=== PATIENT | male | born 1950 | race Caucasian/White ===

== ENCOUNTER → 2018-06-15 08:12 | Outpatient (CLI) | payer MEDICARE, OTHER ==
[~2018-06-15] VITALS: Ht 193 cm; Wt 154.5 kg
--- NOTE | ~2018-06-15 | OP ---
PATIENT NAME: SYED LEDESMA MEDICAL RECORD: [id number] :48 LOCATION:D.CAT ADMISSION DATE: SURGEON: ARCHIE BARNES MD DATE OF OPERATION: 06/15/2018 PROCEDURES: 1. PTCA and stent of LAD. 2. Intravascular ultrasound. 3. Left heart catheterization. 4. Selective coronary angiography. 5. Left ventriculogram. INDICATIONS: Angina, coronary artery disease, abnormal ECG. DESCRIPTION OF PROCEDURE: After informed consent was obtained and after a detailed explanation of the risks, benefits as well as alternative therapies, the patient elected to proceed with angiogram and angioplasty. The right radial area was prepped and draped in normal sterile fashion. Right radial artery was cannulated via modified Seldinger technique with placement of 6-Haitian sheath. All catheters exchanged through this sheath. FINDINGS: The left ventriculogram was performed in standard 30-degree REYNOSO view, reveals preserved cardiac wall motion and ejection fraction in the 55% range. SELECTIVE CORONARY ANGIOGRAPHY: 1. Left main is with no significant angiographic disease. 2. Left anterior descending has 80% stenosis in the proximal mid vessel confirmed by intravascular ultrasound. 3. Left circumflex has mild irregularities, but no flow-limiting stenosis. 4. Right coronary is small, nondominant with no significant disease. PTCA AND STENT OF THE LAD: The stent used is a 3.0 x 30-mm Integrity. Result was 0% residual stenosis. OVERALL IMPRESSION: Successful PTCA and stent of the LAD going from 80% initial stenosis to 0% residual stenosis. TRANSINT:[id number] Voice Confirmation ID: [id number] DOCUMENT ID: [id number] ARCHIE BARNES MD at 1925 CC: [id number] DICTATION DATE: 06/15/18 1234 LENS GRINDER APPRENTICE: 06/15/18 1326 [facility] [address] [place] [address]
--- NOTE | ~2018-06-15 | HEMODYNAMI ---
PATIENT:SYED LEDESMA MEDICAL RECORD: [id number] : 48 LOCATION:D.CAT ADMISSION DATE: 06/15/18 Generatedon:06/15/201812:36 Patient name: SYED LEDESMA Patient #: [id number] SSN: : 1950 Date of study: 06/15/2018 Page: Of Hemodynamic Procedure Report Patient Data Patient Demographics Procedure consent was obtained First Name: SYED Gender: Male Last Name: CALLIE : 1950 Middle Initial: EMMANUEL Age: 68 year(s) Patient #: [id number] Race: Unknown Additional ID: [id number] Contact details Address: [address] [place] [address] State: [place] City: [place] Zip code: [address] Past Medical History Allergies: No known allergies Admission Admission Data Admission Date: 06/15/2018 Admission Time: 8:12 Procedure Procedure Types Cath Procedure Diagnostic Procedure LHC LHC w/Coronaries FFR/IVUS Intra-Coronary IVUS Initial PCI Procedure Coronary Stent Coronary Stent Initial Procedure Description Procedure Date Procedure Date: 06/15/2018 Procedure Start Time: 12:16 Procedure End Time: 12:34 Procedure Staff Name Function Frantz Aldridge MD Performing Physician Jason Cardenas RN Marine Fuel Dock Attendant Chantelle Perdomo RT Monitor Naima Moore RN Nurse David Frazier RT Scrub Procedure Data Cath Procedure Fluoroscopy Diagnostic fluoroscopy Total fluoroscopy Time: 4.6 time: 4.6 min min Diagnostic fluoroscopy Total fluoroscopy dose: 979 dose: 979 mGy mGy Contrast Material Contrast Material Type Amount (ml) Isovue 300 125 Entry Location Entry Primary Successful Side Size Upsize Upsize Entry Closure Bird ccessful Closure Location (Fr) 1 (Fr) 2 (Fr) Remarks Device Remarks Radial Right 6 Fr Mechanical artery Short Compression Estimated blood loss: 10 ml Diagnostic catheters Device Type Used For End Catheter Placement DIAGNOSTIC [place] 110cm 5 Procedure Fr catheter ([id number]) DIAGNOSTIC AR2 MOD 5 Fr Procedure catheter ([id number]) Procedure Complications No complications Procedure Medications Medication Administration Route Dosage 0.9% NaCl I.V. 100 ml/hr Oxygen etCO2 Nasal cannula 2 l/min Lidocaine 2% added to field 20 Heparin Flush Bag added to field 2 bags (1000units/500ml NS) Radial Cocktail added to field 1 syringe (Verapomil 2mg/Nitro 400mcg/Heparin 1500units) Versed I.V. 2 mg Fentanyl I.V. 100 mcg Versed I.V. 2 mg Fentanyl I.V. 25 mcg Versed I.V. 2 mg Fentanyl I.V. 75 mcg Heparin Bolus I.V. 4000 units Hemodynamics Rest Heart Rate: 55 (bpm) Snapshots Pre Cath Intra NCS Post Cath Vital Signs Time Heart Resp SPO2 etCO2 NIBP (mmHg) Rhythm Pain Sedation Rate (ipm) (%) (mmHg) Status Level (bpm) 12:00:38 49 18 96 27 185/85(133) A-Flutter 0 (11) 10(A) , No pain 12:05:06 54 18 97 33.3 174/80(134) A-Flutter 0 (11) 10(A) , No pain 12:10:18 55 18 98 15.1 170/77(123) A-Flutter 0 (11) 10(A) , No pain 12:14:32 46 14 97 29.5 138/85(100) A-Flutter 0 (11) 10(A) , No pain 12:18:34 46 12 96 13.6 116/79(102) A-Flutter 0 (11) 10(A) , No pain 12:23:34 50 13 98 46.2 160/75(120) A-Flutter 0 (11) 10(A) , No pain 12:27:50 62 15 96 40.8 165/105(122) A-Flutter 0 (11) 10(A) , No pain 12:33:08 54 11 98 25.7 163/70(112) A-Flutter 0 (11) 10(A) , No pain Medications Time Medication Route Dose Verified Delivered Reason Not es Effectiveness by by 11:51:59 0.9% NaCl I.V. 100 Frantz Jovelyla used for ml/hr Oly Moore environmental services manager 11:52:06 Oxygen etCO2 2 l/min Frantz Naima used for Nasal Oly Moore procedure cannula RN 11:52:13 Lidocaine 2% added 20ml Frantz Naima used for to vial Oly Moore procedure field RN 11:52:18 Heparin Flush added 2 bags Frantz Naima used for Bag to Oly Moore procedure (1000units/500ml field RN NS) 12:08:21 Radial Cocktail added 1 Frantz Frantz used for (Verapomil to syringe Oly Aldridge MD procedure 2mg/Nitro field 400mcg/Heparin 1500units) 12:11:15 Versed I.V. 2 mg Frantz Naima for sedation Oly Moore RN 12:11:23 Fentanyl I.V. 100 mcg Frantz Naima for sedation Oly Moore RN 12:16:39 Versed I.V. 2 mg Frantz Naima for sedation Oly Moore RN 12:16:49 Fentanyl I.V. 25 mcg Frantz Naima for sedation Oly Moore RN 12:20:04 Heparin Bolus I.V. 4000 Frantz Naima for jamia ified units Oly Moore anticoagulation with Dr. MEGAN Montesinos 12:22:48 Versed I.V. 2 mg Frantz Naima for sedation Oly Moore RN 12:25:56 Fentanyl I.V. 75 mcg Frantz Naima for sedation Oly Moore RN Procedure Log Time Note 11:47:24 Time tracking: Regular hours (M-F 7:00 - 5:00) 11:47:28 Plan of Care:Hemodynamics will remain stable., Cardiac rhythm will remain stable., Comfort level will be maintained., Respiratory function will remain adequate., Patient/ family verbilizes understanding of procedure., Procedure tolerated without complication., Recovers from procedure without complications.. 11:47:30 Jason Cardenas RN sent for patient. Start room use. 11:51:15 Patient received from Pre/Post Procedure Room to CCL 1 Alert and oriented. Tansferred to table in Supine position. 11:51:17 Warm blankets applied, and krystle hugger turned on for patient comfort. 11:51:17 Correct patient and procedure confirmed by team. 11:51:18 Signed procedure consent form obtained from patient. 11:51:19 ECG and BP/O2 sat monitors applied to patient. 11:51:21 Diagnostic Cath status Elective 11:51:28 H&P Date Dictated: 06/10/2018 Within 30 days and on chart., H&P Addendum completed by physician on day of procedure. (MUST COMPLETE FOR ALL OUTPATIENTS). 11:51:59 0.9% NaCl 100 ml/hr I.V. was administered by Naima Moore RN; used for procedure; 11:52:06 Oxygen 2 l/min etCO2 Nasal cannula was administered by Naima Moore RN; used for procedure; 11:52:13 Lidocaine 2% 20ml vial added to field was administered by Naima Moore RN; used for procedure; 11:52:18 Heparin Flush Bag (1000units/500ml NS) 2 bags added to field was administered by Naima Moore RN; used for procedure; 11:57:00 Pre-procedure instructions explained to patient. 11:57:03 Family in waiting room. 11:57:07 Patient NPO since Midnight. 11:57:17 Patient allergic to No known allergies 11:57:20 Is the patient allergic to Iodine/contrast media? No. 11:57:23 Was the patient premedicated? Yes 11:57:28 Is patient on blood thinner?Yes 11:57:31 ACC The patient was administered the following blood thiners within the last 24 hours: ACCPlavix 11:58:20 Patient diabetic? Yes. 11:58:21 If diabetic: On Metformin? Yes 11:58:27 If on Metformin: Last Dose? 06/14/2018 11:58:30 Vital chart was started 11:58:31 Baseline sample Acquired. 11:58:35 Rhythm: sinus rhythm 11:58:37 Full Disclosure recording started 11:58:43 Snore? Yes 11:58:45 Sleep apnea? No 11:58:50 Dentures? No ? 11:58:54 Patient pain scale 0/10 ?. 11:59:02 IV patent on arrival in left forearm with 0.9% NaCl at [facility]. 11:59:04 Lab results completed and on chart. 11:59:08 Right Radial & Right Groin area was prepped with chlora-prep and draped in sterile fashion 11:59:10 Alarms reviewed by R. N. 11:59:10 Sharps counted by scrub and verified by R.N. 11:59:11 Physician paged 12:02:32 Physician arrived 12:06:14 --------ALL STOP TIME OUT------ 12:06:15 Final Timeout: patient, procedure, and site verified with staff and physician. All members of the team are in agreement. 12:06:17 Right Radial & Right Groin site verified by team. 12:06:19 Physical assessment completed. ASA score P 2 - A patient with mild systemic disease as per Frantz Aldridge MD. 12:06:25 Sedation plan: IV Moderate Sedation Medication:Versed, Fentanyl 12:06:50 Use device set Radial Dx or PCI 12:06:51 ACIST Syringe (95726) opened to sterile field. 12:06:52 Bag Decanter (2002S) opened to sterile field. 12:06:52 ACIST Hand Control (95295) opened to sterile field. 12:06:53 ACIST Manifold (72446) opened to sterile field. 12:06:53 Tegaderm 4 x 4 (1626W) opened to sterile field. 12:06:56 Medline Cath Pack ([id number]) opened to sterile field. 12:06:57 DIAGNOSTIC WIRE .035 260cm J wire (563021) opened to sterile field. 12:06:57 MBrace Wrist Support (987022028) opened to sterile field. 12:06:58 SHEATH 6FR Slender (34-3285) opened to sterile field. 12:08:21 Radial Cocktail (Verapomil 2mg/Nitro 400mcg/Heparin 1500units) 1 syringe added to field was administered by Frantz Aldridge MD; used for procedure; 12:11:13 Baseline sample Acquired. 12:11:15 Versed 2 mg I.V. was administered by Naima Moore RN; for sedation; 12:11:23 Fentanyl 100 mcg I.V. was administered by Naima Moore RN; for sedation; 12:16:16 Procedure started. 12:16:24 Local anesthetic to right radial artery with Lidocaine 2% by Frantz Aldridge MD.INITIAL ACCESS ONLY 12:16:33 Zero performed for pressure channel P1 12:16:39 Versed 2 mg I.V. was administered by Naima Moore RN; for sedation; 12:16:49 Fentanyl 25 mcg I.V. was administered by Naima Oscar RN; for sedation; 12:16:53 A 6 Fr Short sheath was inserted into the Right Radial artery 12:17:27 A DIAGNOSTIC [place] 110cm 5 Fr catheter (509921) was advanced over the wire and used for Procedure. 12:17:31 Zero performed for pressure channel P1 12:17:38 Zero performed for pressure channel P1 12:17:45 Zero performed for pressure channel P1 12:17:53 Zero performed for pressure channel P1 12:18:11 Zero performed for pressure channel P1 12:18:21 Zero performed for pressure channel P1 12:18:57 LV gram done using REYNOSO 12:18:59 Injector settings: Ml/sec: 7, Volume: 15, 12:19:36 EF : 55 % 12:20:04 Heparin Bolus 4000 units I.V. was administered by Naima Moore RN; for anticoagulation; verified with Dr. Aldridge 12:20:56 UNABLE TO ENGAGE LCA/RCA 12:20:58 Catheter exchanged over wire. 12:22:08 A DIAGNOSTIC AR2 MOD 5 Fr catheter ([id number]) was advanced over the wire and used for Procedure. 12:22:17 RCA angiography performed. 12:22:18 Catheter exchanged over wire. 12:22:23 GUIDE 6FR EBU 3.0 catheter ([id number]) opened to sterile field. 12:22:33 6 Fr EBU 3 guide catheter was inserted over the wire 12:22:48 Versed 2 mg I.V. was administered by Naima Moore RN; for sedation; 12:23:52 LCA angiography performed. 12:24:09 INFLATOR Merit BasixCompak (KC7563) opened to sterile field. 12:24:10 CHOICE PT Extra Support 182cm wire (6806601N0) opened to sterile field. 12:24:11 Creighton Hammond Eagleye IVUS Catheter (51688M) opened to sterile field. 12:24:48 CHOICE ES 182 wire advanced. 12:25:24 Wire advanced across lesion. 12:25:42 IVUS catheter advanced over wire. 12:25:56 Fentanyl 75 mcg I.V. was administered by Naima Moore RN; for sedation; 12:27:35 IVUS pass to LAD lesion performed. 12:27:36 IVUS catheter removed over wire. 12:29:30 Place stent Inflation Number: 1 A INTEGRITY RX 3.0 x 30 stent ([id number]) was prepped and advanced across the Mid LAD. The stent was deployed at 13 [address] for 0:10 (min:sec). 12::55 Stent catheter was removed intact over wire. 12::55 Wire removed. 12::56 Guide catheter removed. 12:30:03 Procedure ended.(Physican Out) 12:31:04 TR BAND Large ([id number]) opened to sterile field. 12:32:08 Sheath removed intact; hemostasis achieved with Mechanical Compression to the Right Radial artery. 12:32:12 Fluoroscopy time 04.60 minutes. 12:32:16 Fluoroscopy dose: 979 mGy 12:32:16 Flurop Dose total: 979 12::24 Contrast amount:Isovue 300 125ml. 12:32:27 TR band inflated with 10cc of air. 12:32:49 Post-procedure physical assessment completed. ASA score P 2 - A patient with mild systemic disease as per Frantz Aldridge MD. 12:32:53 Post procedure rhythm: atrial flutter 12::55 Estimated blood loss: 10 ml 12::56 Post procedure instruction explained to patient.Patient verbalizes understanding. 12:32:57 Patient needs reinforcement of post procedure teaching. 12:33:24 Procedure type changed to Cath procedure, Diagnostic procedure, LHC, LHC w/Coronaries, FFR/IVUS, Intra-Coronary IVUS Initial, PCI procedure, Coronary Stent, Coronary Stent Initial 12:33:53 Procedure and supply charges have been captured, reviewed, submitted and are correct. 12:33:55 Procedure Complication : No complications 12:33:56 Vital chart was stopped 12:33:57 See physician's report for complete and final results. 12:33:58 Report given to Pre/Post Procedure Room. 12:34:00 Patient transfered to Pre/Post Procedure Room with Bed. 12:34:01 Procedure ended. 12:34: Full Disclosure recording stopped 12:34:09 End room use (Document Last) Intervention Summary Intervention Notes Time ActionType Lesion and Equipment Action# Pressure Duration Attributes Used 12:29:30 Place stent Mid LAD INTEGRITY RX 1 13 00:10 3.0 x 30 stent ([id number]) Device Usage Item Name Manufacture Quantity Catalog Number Hospital Part Current Mini mal Lot# / Charge Number Stock Stock Serial# Code ACIST Acist 1 12484 389534 016334 753514 20 Syringe Medical (69766) Systems Inc Bag Decanter Microtek 1 2001S 804525 06083 889386 5 (2001S) Medical Inc. ACIST Hand Acist 1 38409 738954 130835 068069 5 Control Medical (14417) Systems Inc ACIST Acist 1 80877 707093 654490 598361 5 Manifold Medical (01753) Systems Inc Tegaderm 4 x 3M 1 1626W 048404 421285 397633 5 4 (1626W) Medline Cath Medline 1 [id number] 071365 18659 654151 5 Pack ([id number]) DIAGNOSTIC [facility] 1 917551 288711 645119 953344 30 WIRE .035 260cm J wire (592515) MBrace Wrist Advanced 1 140-0250-00 724818 49884 077850 5 Support Vascular (994726169) Dynamics SHEATH 6FR Terumo 1 [id number] 636300 195382 932549 40 Slender (80-1060) DIAGNOSTIC Terumo 1 40-5013 727719 959457 696839 5 [place] 110cm 5 Fr catheter (709203) DIAGNOSTIC Cardinal 1 [id number] 146042 181378 556979 20 AR2 MOD 5 Fr Health catheter (191790J) GUIDE 6FR Medtronic 1 [id number] 595423 19966 218911 0 EBU 3.0 catheter (WD7QSS47) INFLATOR [facility] 1 XK5559 548629 263896 175593 15 [facility] Medical BasixCompak (UF9411) CHOICE PT [place] 1 [id number] 232549 855354 094317 5 Extra Scientific Support 182cm wire ([id number]) Creighton Creighton 1 23070L 436230 153580 798266 8 Hammond Eagleye IVUS Catheter (32808D) INTEGRITY RX Medtronic 1 [id number] 666565 211247 346737 5 [id number] 3.0 x 30 stent ([id number]) TR BAND Terumo 1 [id number] 124945 808588 927020 40 Large ([id number]) Signature Audit [place] Stage Time Signature Unsigned Intra-Procedure 06/15/2018 Chantelle Perdomo 12:36:20 PM RT(R) Signatures Monitor : Chantelle Perdomo Signature : RT Date : Time : [id number] [place] [address]
[~2018-06-15 08:12] MED LIST: ASPIRIN325 MG PO; CELEXA10 MG PO; CHROMIUM PICO200 MC1 PO; COZAAR100 MG PO; FUROSEMIDE40 MG PO; GLUCOPHAGE1000 MG PO; MULTI-DAY VITAM1 TAB PO; NEURONTIN 300300 MG PO; NORVASC5 MG PO; OMEPRAZOLE20 M1 PO; PLAVIX75 MG PO; TOPROL XL100 MG PO; TOPROL XL200 MG PO; ZESTRIL40 MG PO; ZOCOR20 MG PO
[2018-06-15 09:00] VITALS: BP 171/61; Ht 193 cm; Wt 154.5 kg
[2018-06-15 09:03] LABS: BASOPHILS 1.1 % (0-2); EOSINOPHILS 1.9 % (0-7); HEMATOCRIT 28.5 % (42.0-54.0); HEMOGLOBIN 7.9 g/dL (13.5-17.5); IMMATURE GRANULOCYTES 0.5 % (0-5); LYMPHOCYTES 16.1 % (15-50); MCH 19.5 pg (26.0-34.0); MCHC 27.7 g/dL (31.0-37.0); MCV 70.2 fL (80.0-100.0); MEAN PLATELET VOLUME 9.3 fL (7.4-10.4); MONOCYTES 6.8 % (2-11); NEUTROPHILS 73.6 % (40-80); PLATELET COUNT 252 10x3/uL (130-400); RBC 4.06 10x6/uL (4.20-6.10); RDW 18.3 % (11.5-14.5); WBC 5.7 10x3/uL (4.8-10.8)
[2018-06-15 09:09] LABS: ANION GAP 12.7 mmol/L (8-16); CALCIUM 9.3 mg/dL (8.5-10.1); CARBON DIOXIDE 28.5 mmol/L (21.0-32.0); CREATININE - SERUM 1.2 mg/dL (0.6-1.3); POTASSIUM - SERUM 4.2 mmol/L (3.5-5.1)
[2018-06-15 16:09] LABS: BASOPHILS 0.7 % (0-2); EOSINOPHILS 2.3 % (0-7); HEMATOCRIT 30.2 % (42.0-54.0); HEMOGLOBIN 8.6 g/dL (13.5-17.5); IMMATURE GRANULOCYTES 0.2 % (0-5); MCH 20.6 pg (26.0-34.0); MCHC 28.5 g/dL (31.0-37.0); MEAN PLATELET VOLUME 9.6 fL (7.4-10.4); MONOCYTES 8.8 % (2-11); PLATELET COUNT 228 10x3/uL (130-400); RBC 4.18 10x6/uL (4.20-6.10); WBC 4.4 10x3/uL (4.8-10.8)
[2018-06-15 16:21] LABS: MCV 72.2 fL (80.0-100.0)
== END | disposition home or self-care (01) ==
LOC: D.CATH 08:12
PROVIDERS: Internal Medicine Interventional Cardiology
DX: I25.119 Atherosclerotic heart disease of native coronary artery with unspecified angina pectoris (principal); R94.31 Abnormal electrocardiogram [ECG] [EKG]

== ENCOUNTER 2018-07-16 09:59 | Outpatient (CLI) | payer MEDICARE, OTHER ==
[~2018-07-16] VITALS: Ht 193 cm; Wt 153.2 kg
--- NOTE | ~2018-07-16 | HEMODYNAMI ---
PATIENT:SYED LEDESMA MEDICAL RECORD: [id number] : 48 LOCATION:D.CAT ADMISSION DATE: 07/16/18 Generatedon:07/16/201812:41 Patient name: SYED LEDESMA Patient #: [id number] SSN: : 1950 Date of study: Page: Of Hemodynamic Procedure Report Patient Data Patient Demographics Procedure consent was obtained First Name: SYED Gender: Male Last Name: CALLIE : 1950 Middle Initial: EMMANUEL Age: 68 year(s) Patient #: [id number] Race: Unknown Additional ID: [id number] Contact details Address: [address] [place] [address] State: [place] City: [place] Zip code: [address] Past Medical History Allergies: No known allergies Admission Admission Data Admission Date: 07/16/2018 Admission Time: 9:59 Procedure Procedure Types Cath Procedure Diagnostic Procedure Cardioversion External Procedure Description Procedure Staff Name Function Frantz Aldridge MD Performing Physician Savannah Mccabe RT Monitor Jason Cardenas RN Nurse Grey Samaniego MD Additional personnel Procedure Medications Medication Administration Route Dosage Oxygen etCO2 Nasal cannula 6 l/min 0.9% NaCl I.V. 100 ml/hr Refer to Anesthesia Notes for Sedation Medications Hemodynamics Rest Heart Rate: 69 (bpm) Snapshots Pre Cath Intra NCS Post Cath Vital Signs Time Heart Resp SPO2 etCO2 NIBP (mmHg) Rhythm Pain Sedation Rate (ipm) (%) (mmHg) Status Level (bpm) 12:16:12 76 16 97 7.4 146/60(93) NSR 0 (11) 10(A) , No pain 12:20:36 75 17 98 5.2 124/58(93) NSR 0 (11) 10(A) , No pain 12:25:03 69 16 97 7.4 122/55(104) NSR 0 (11) 10(A) , No pain 12:29:29 64 17 98 7.4 128/56(81) NSR 0 (11) 10(A) , No pain 12:33:59 72 17 91 2.2 127/51(83) NSR 0 (11) 9(A) , No pain 12:38:28 64 17 95 4.4 133/57(85) NSR 0 (11) 9(A) , No pain Medications Time Medication Route Dose Verified Delivered Reason Notes Effective ness by by 12:16:54 Oxygen etCO2 6 Frantz Gomez Per Nasal l/min Oly Cardenas RN physician cannula 12:17:03 0.9% NaCl I.V. 100 Frantz Jason Per ml/hr Oly Cardenas RN physician 12:17:11 Refer to Frantz Gomez Anesthesia Oly Cardenas RN Notes for Sedation Medications Procedure Log Time Note 11:57:19 Time tracking: Regular hours (M-F 7:00 - 5:00) 11:57:22 Plan of Care:Hemodynamics will remain stable., Cardiac rhythm will remain stable., Comfort level will be maintained., Respiratory function will remain adequate., Patient/ family verbilizes understanding of procedure., Procedure tolerated without complication., Recovers from procedure without complications.. 12:02:56 Jason Cardenas RN sent for patient. Start room use. 12:09:46 Patient received from Pre/Post Procedure Room to CCL 3 Alert and oriented. Tansferred to table in Supine position. 12:09:47 Warm blankets applied, and krystle hugger turned on for patient comfort. 12:09:48 Correct patient and procedure confirmed by team. 12:09:49 Signed procedure consent form obtained from patient. 12:09:49 ECG and BP/O2 sat monitors applied to patient. 12:09:50 Full Disclosure recording started 12:10:05 H&P Date Dictated: 06/22/2018 Within 30 days and on chart., H&P Addendum completed by physician on day of procedure. (MUST COMPLETE FOR ALL OUTPATIENTS). 12:10:13 Rhythm: atrial fibrillation 12:14:51 Vital chart was started 12:16:54 Oxygen 6 l/min etCO2 Nasal cannula was administered by Jason Cardenas RN; Per physician; 12:17:03 0.9% NaCl 100 ml/hr I.V. was administered by Jason Cardenas RN; Per physician; 12:17:09 Pre-procedure instructions explained to patient. 12:17:10 Pre-op teaching completed and patient verbalized understanding. 12:17:11 Refer to Anesthesia Notes for Sedation Medications was administered by Jason Cardenas RN; ; 12:18:56 Family in patients room. 12:18:57 Patient NPO since Midnight. 12:19:32 Patient allergic to No known allergies 12:19:35 Is the patient allergic to Iodine/contrast media? No. 12:19:38 Is patient on blood thinner?Yes 12:20:30 ACC The patient was administered the following blood thiners within the last 24 hours: ACCPlavix, Xarelto 12:20:59 SEE ANESTHESIA RECORD FOR PRE-ASSESSMENT 12:21:04 Patient pain scale 0/10 ?. 12:21:12 IV patent on arrival in left forearm with 0.9% NaCl at [facility]. 12:21:15 Lab results completed and on chart. 12:21:17 Alarms reviewed by R. N. 12:21:17 Sharps counted by scrub and verified by R.N. 12:21:26 Quick combo pads placed on patients chest and back. 12:21:36 Quick Combo opened to sterile field. 12:25:25 Baseline sample Acquired. 12:25:31 Grey Samaniego MD present and monitoring patient for TIVA. 12:33:27 Final Timeout: patient, procedure, and site verified with staff and physician. All members of the team are in agreement. 12:33:30 Physical assessment completed. ASA score P 2 - A patient with mild systemic disease as per Frantz Aldridge MD. 12:33:34 Sedation plan: TIVA Medication:Propofol 12:34:12 Defibrillator synced and charged to 275 Joules. 12:35:13 Shock delivered. 12:35:22 Patient cardioverted to sinus bradycardia. 12:35:30 Procedure ended.(Physican Out) 12:36:43 Sharps counted by scrub and verified by R.N. 12:36:46 Insertion/operative site no bleeding no hematoma. 12:38:04 Post procedure rhythm: sinus rhythm 12:38:08 Post procedure instruction explained to patient.Patient verbalizes understanding. 12:38:08 Patient needs reinforcement of post procedure teaching. 12:38:16 See physician's report for complete and final results. 12:41:29 Vital chart was stopped 12:41:31 Report given to Pre/Post Procedure Room. 12:41:34 Patient transfered to Pre/Post Procedure Room with Stretcher. 12:41:36 End room use (Document Last) Device Usage Item Manufacture Quantity Catalog Hospital Part Current Minimal Lot# / Name Number Charge Number [place] kruger# Code [facility] Meet You [facility] 1 [id number] [id number] 5 Combo Signature Audit [place] Stage Time Signature Unsigned Intra-Procedure 07/16/2018 Savannah 12:41:49 PM Counts RT(R) Signatures Monitor : Savannah Signature : Counts RT Date : Time : [address] [address]
[2018-07-16] MEDS ORDERED: XARELTO20 MG PO (10:39)
[2018-07-16 10:45] VITALS: BP 128/23; Ht 193 cm; Wt 153.2 kg
[2018-07-16 11:00] LABS: BASOPHILS 0.9 % (0-2); EOSINOPHILS 2.3 % (0-7); HEMATOCRIT 27.9 % (42.0-54.0); IMMATURE GRANULOCYTES 0.4 % (0-5); LYMPHOCYTES 23.7 % (15-50); MCHC 28.7 g/dL (31.0-37.0); MCV 83.8 fL (80.0-100.0); MEAN PLATELET VOLUME 9.2 fL (7.4-10.4); MONOCYTES 8.5 % (2-11); NEUTROPHILS 64.2 % (40-80); PLATELET COUNT 266 10x3/uL (130-400); RBC 3.33 10x6/uL (4.20-6.10); RDW 26.4 % (11.5-14.5); WBC 5.7 10x3/uL (4.8-10.8)
[2018-07-16 11:09] LABS: ANION GAP 14.4 mmol/L (8-16); APTT 32.1 SECONDS (22.8-39.4); CALCIUM 8.5 mg/dL (8.5-10.1); CARBON DIOXIDE 26.7 mmol/L (21.0-32.0); CREATININE - SERUM 1.2 mg/dL (0.6-1.3); INR 1.37 (0.85-1.17); POTASSIUM - SERUM 4.1 mmol/L (3.5-5.1); PROTIME 16.3 SECONDS (11.6-15.0)
--- NOTE | 2018-07-16 13:00 | NUR ---
PT SITTING UP VISITING WITH FAMILY. VSS.
--- NOTE | 2018-07-16 13:25 | NUR ---
DR. BARNES AT BEDSIDE. SPOKE WITH PT AND PT'S SONS. PT STILL IN NSR. RATE 66.
--- NOTE | 2018-07-16 13:50 | NUR ---
LEFT FA PIV D/C'D. CATH TIP INTACT. PT TOLERATED WELL. PT STILL IN NSR. PT INSTRUCTED TO GET DRESSED. PT TO RESTROOM AND VOIDED WITHOUT DIFFICULTY.
--- NOTE | 2018-07-16 14:08 | NUR ---
DISCUSSED DISCHARGE INSTRUCTIONS WITH PT AND PT'S FAMILY. THEY VOICED UNDERSTANDING.
--- NOTE | 2018-07-16 14:10 | NUR ---
PT TAKEN BY WHEELCHAIR TO VEHICLE. NO S/S OF DISTRESS NOTED. ALL BELONGINGS AND PAPERWORK IN HAND.
--- NOTE | 2018-07-22 14:56 | OP ---
PATIENT NAME: SYED LEDESMA MEDICAL RECORD: [id number] :[birth year] LOCATION:D.CAT ADMISSION DATE: SURGEON: ARCHIE BARNES MD DATE OF OPERATION: 07/16/2018 PROCEDURE: DC cardioversion. INDICATION: Atrial fibrillation. PROCEDURE IN DETAIL: IV conscious sedation was per anesthesia. Continuous heart rate, O2 saturation, and blood pressure monitoring all undertaken, all of which remained stable here. She received one shock at 275 joules, restoring sinus rhythm. OVERALL IMPRESSION: Successful DC cardioversion from atrial fibrillation to sinus rhythm. TRANSINT:[id number] Voice Confirmation ID: [id number] DOCUMENT ID: [id number] ARCHIE BARNES MD at 1456 CC: [id number] DICTATION DATE: 07/16/18 1238 JUVENILE JUSTICE OFFICER: 07/16/18 1601 DEP CLI 07/16/18 [address] [place] [address]
== END 2018-07-16 14:10 | disposition home or self-care (01) ==
LOC: D.CATH 09:59
PROVIDERS: Internal Medicine Interventional Cardiology
DX: I48.91 Unspecified atrial fibrillation (principal); Z01.812 Encounter for preprocedural laboratory examination